=== PATIENT | male | born 1990 | race Hispanic/Latino ===

== ENCOUNTER 2021-09-22 17:35 | Emergency (ER) | payer OTHER ==
[~2021-09-22] VITALS: Ht 170.2 cm; Wt 83.6 kg
[2021-09-22] MEDS ORDERED: CEFTRIAXONE 500 MG VIAL IM ONE (18:30)
[2021-09-22] MEDS ORDERED: CEFTRIAXONE 500 MG VIAL ONE (18:40)
[2021-09-22] MEDS ORDERED: LIDOCAINE HCL 1% LOCAL INJ 20 ML VIAL ONE (18:40)
[2021-09-22] MEDS ORDERED: DOXYCYCLINE HY100 MG PO (18:45)
== END 2021-09-22 19:00 | disposition home or self-care (01) ==
LOC: FSED 17:56
DX: R30.0 Dysuria (principal); Z20.2 Contact with and (suspected) exposure to infections with a predominantly sexual mode of transmission; Z72.51 High risk heterosexual behavior
CPT/HCPCS: 81003; 96372; 99283; J0696; J2001